=== PATIENT | male | born 1955 | race Two or more races ===

== ENCOUNTER → 2020-08-28 | Emergency (ER) | payer OTHER ==
[~2020-08-28] VITALS: Ht 177.8 cm; Wt 68.0 kg
[~2020-08-28] MED LIST: CIPRO500 MG PO
== END | disposition home or self-care (01) ==
LOC: ER 06:19
DX: S91.052A Open bite, left ankle, initial encounter (principal); W54.0XXA Bitten by dog, initial encounter; Y93.01 Activity, walking, marching and hiking; Y92.488 Other paved roadways as the place of occurrence of the external cause; Y99.8 Other external cause status

== ENCOUNTER → 2024-09-02 | Emergency (ER) | payer OTHER ==
[~2024-09-02] VITALS: Ht 177.8 cm; Wt 59.0 kg
[~2024-09-02] MED LIST changes: +DICLOFENAC SODI75 MG PO; +FAMOTIDINE/PF 20 MG in 0.9 % SODIUM CHLORIDE 8 ML IV PUSH STA; +KETOROLAC TROMETHAMINE 30 MG VIAL IV ONE; +MIRALAX510 GM PO; +ROSUVASTATIN CA10 MG PO
== END | disposition home or self-care (01) ==
LOC: ER 11:58
DX: S39.82XA Other specified injuries of lower back, initial encounter (principal); W10.0XXA Fall (on)(from) escalator, initial encounter; Y93.89 Activity, other specified; Y92.018 Other place in single-family (private) house as the place of occurrence of the external cause; S69.81XA Other specified injuries of right wrist, hand and finger(s), initial encounter; E78.00 Pure hypercholesterolemia, unspecified; K59.00 Constipation, unspecified
CPT/HCPCS: 72100; 73130; 74019; 96365; 99283; J1885; J3490